=== PATIENT | female | born 1990 | race Caucasian/White ===

== ENCOUNTER 2017-02-27 10:26 | Emergency (ER) | payer OTHER ==
[~2017-02-27] VITALS: Ht 162.6 cm; Wt 45.4 kg
[~2017-02-27 10:26] MED LIST: SERTRALINE HYD100 MG PO
[2017-02-27 10:47] VITALS: BP 123/79
--- NOTE | 2017-02-27 11:10 | ED UPPER/LOWER EXTREMITY COMPL ---
History of Present Illness General Chief Complaint: Shoulder Injury Stated Complaint: LEFT SHOULDER PAIN, X 3 WEEKS Source: patient Exam Limitations: no limitations Vital Signs & Intake/Output Vital Signs & Intake/Output ED Intake and Output 02/28 0000 02/27 1200 Intake Total Output Total Balance Patient 99 lb 15.99 oz Weight Allergies Coded Allergies: No Known Allergies (02/27/17) Reconcile Medications SERTRALINE HCL (Sertraline Hydrochloride) 100 MG TABLET 1 TAB PO DAILY DEPRESSION (Reported) Triage Note: TRIAGE: PT TO ER C/C L SHOULDER PAIN X 3 WKS, TAKING NAPROXYN (MORE THAN PRESCRIBED DOSE) AND IS ONLY GETTING SLIGHT RELIEF. WAS SEEN AT [facility] FOR SAME ON 02/19/17 AND GIVEN INSTRUCTIONS WITH INFORMATION ON SHOULDER SPRAINS. WAS ALSO ADVISED TO FOLLOW UP WITH ORTHOPEDIST BUT STATES "I COULDN'T LOCATE THE OFFICE". Triage Nurses Notes Reviewed? yes Onset: Abrupt Duration: week(s): (3) Timing: recent history Severity: moderate, severe Pain/Injury Location: Left: Shoulder. Method of Injury: UNSURE IF ITS A WORK INJURY Modifying Factors: Worsens With: movement. : No Patient currently breastfeeds: No HPI: 26 year female diagnosed with shoulder sprain at [facility] 2 days ago. She was having 3 weeks of pain and had an xray done. Pain is in left shoulder, worse with abduction, and front/back extension. No known trauma but does a lot of lifting at work. She has been using naproxen twice a day but states that her work does not want her to use anything else. Past History Travel History Traveled to [place] past 21 day No Medical History Any Pertinent Medical History? 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 No Review of Systems Review of Systems Constitutional: Denies: chills, fever. EENTM: Reports: no symptoms. Respiratory: Denies: cough, short of breath. Cardiovascular: Denies: chest pain, palpitations. Gastrointestinal/Abdominal: Denies: abdominal pain. Genitourinary: Reports: no symptoms. Musculoskeletal: Reports: joint pain, muscle pain. Skin: Reports: no symptoms. Neurological/Psychological: Reports: no symptoms. Hematologic/Endocrine: Denies: bruising, bleeding, polyuria, polydipsia. Immunological: Denies: splenectomy. All Other Systems: Reviewed and Negative Physical Exam Physical Exam General Appearance: alert, awake, mild distress, thin Head: atraumatic, normal appearance Eyes: Bilateral: PERRL, EOMI. Ears, Nose, Throat: normal pharynx, normal ENT inspection, hearing grossly normal Neck: normal inspection, supple Cardiovascular/Respiratory: regular rate/rhythm Peripheral Pulses: 2+ radial (R), 2+ radial (L) Back: normal inspection Shoulder Left: normal range of motion, normal inspection, NO SWELLING PATIENT REPORTS PAIN WITH RANGE OF MOTION Shoulder Right: normal range of motion, normal inspection Elbow Left: normal range of motion, normal inspection Elbow Right: normal range of motion, normal inspection Hand Left: normal inspection, normal range of motion Hand Right: normal inspection, normal range of motion Neurologic/Tendon: normal sensation, normal motor functions, normal tendon functions Skin: intact, normal color, warm/dry Lymphatic: no anterior cervical elisha Progress Differential Diagnosis: fracture, sprain, tendon injury, ROTATOR CUFF INJURY Plan of Care: FOLLOW UP WITH ORTHO. SLING PROVIDED ON DISCHARGE. Departure Departure Time of Disposition: 1143 Disposition: HOME OR SELF CARE Condition: Stable Clinical Impression Primary Impression: Sprain of shoulder, left Referrals: EMILIANO AVALOS MD Additional Instructions: Continue the naproxen as needed. Try tylenol for pain Follow up wiht the orthopedic doctor listed. Use the sling as needed. Departure Forms: Customer Survey General Discharge Information
== END 2017-02-27 11:52 ==
LOC: ERH 10:26
DX: S43.402A Unspecified sprain of left shoulder joint, initial encounter (principal); X58.XXXA Exposure to other specified factors, initial encounter; Y93.9 Activity, unspecified; Y92.9 Unspecified place or not applicable
CPT/HCPCS: 99282

== ENCOUNTER → 2017-05-05 | Day surgery (SDC) | payer OTHER ==
[~2017-05-05] VITALS: Ht 160 cm; Wt 45.4 kg
[2017-05-05 07:00] LABS: ABSOLUTE BASOPHIL COUNT 0.1 /CUMM (0.0-0.2); ABSOLUTE EOSINOPHIL COUNT 0.1 /CUMM (0.0-0.7); ABSOLUTE GRANULOCYTE CT 1.4 /CUMM (1.4-6.5); ABSOLUTE LYMPH COUNT 1.7 /CUMM (1.2-3.4); ABSOLUTE MONOCYTE COUNT 0.7 /CUMM (0.10-0.60); BASOPHIL % 2.1 % (0.0-2.0); EOSINOPHIL % 3.2 % (0-5); GRANULOCYTE % 35.2 % (42.2-75.2); HEMATOCRIT 37.6 % (37-47); MEAN CORPUSCULAR HGB 30.7 PG (27.0-31.0); MEAN CORPUSCULAR HGB CONC 34.3 G/DL (33.0-37.0); MEAN CORPUSCULAR VOLUME 89.6 FL (81.0-99.0); MEAN PLATELET VOLUME 8.1 FL (7.4-10.4); PLATELET COUNT 168 /CUMM (130-400); RBC DISTRIBUTION WIDTH 13.2 % (11.5-14.5); WHITE BLOOD CELL COUNT 3.9 /CUMM (4.8-10.8)
[2017-05-05 07:11] LABS: PT 11.3 SEC (9.4-12.5); PTT 32 SEC (25-37)
--- NOTE | 2017-05-19 13:24 | Operative Report ---
Operative/Inv Procedure Report Surgery Date: 05/05/17 Name of Procedure: D&C hysteroscopy Pre-Operative Diagnosis: Adenomyosis Post-Operative Diagnosis: Same Estimated Blood Loss: scant Surgeon/Auditor Tax: TONG VILLEGAS MD Anesthesia: moderate sedation Operative/Procedure Note Note: Patient was taken to the operating room placed in dorsal supine position. After adequate anesthesia, patient was prepped and draped for surgery. Examination under anesthesia was performed. CO2 tenaculum was placed on the anterior lip of the cervix gentle downward traction was used. The cervix was dilated 29 Hegar to left insertion of the hysteroscope. Under direct visualization to hysteroscopy was performed using gas hysteroscope was removed and endocervical curettage was performed. And endometrial curettage was performed. All instruments removed from the vagina. The counts were correct the patient was awakened from anesthesia. And transported to recovery room awake and alert. Findings: Enlarged uterus 10-12 weeks size no adnexal masses the lining appeared normal cervix was normal
== END ==
LOC: STS 04:04
PROVIDERS: Specialist
DX: N80.0 Endometriosis of uterus (principal); N85.2 Hypertrophy of uterus; F17.200 Nicotine dependence, unspecified, uncomplicated
CPT/HCPCS: 36415; 81001; 88305; J0131; J2250